=== PATIENT | female | born 2000 | race Caucasian/White ===

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

== ENCOUNTER 2020-03-28 17:50 | Emergency (ER) | payer OTHER ==
[~2020-03-28] VITALS: Ht 154.9 cm; Wt 70.0 kg
[~2020-03-28 17:50] MED LIST changes: +CORTISPORIN OTI10 M2 AS; +SINGULAIR10 MG PO; +VENTOLIN H108 MCG/AC IN; +ZITHROMAX250 MG PO
[2020-03-28 18:22] VITALS: BP 105/62
== END 2020-03-28 18:26 | disposition home or self-care (01) | DRG 605 ==
LOC: ED 17:50
DX: S60.414A Abrasion of right ring finger, initial encounter (principal); W31.89XA Contact with other specified machinery, initial encounter; Y93.89 Activity, other specified; Y92.89 Other specified places as the place of occurrence of the external cause; Y99.0 Civilian activity done for income or pay

== ENCOUNTER 2020-11-25 18:19 | Emergency (ER) | payer OTHER ==
[2020-11-25] MEDS ORDERED: CLARITHROMYCIN500 MG PO (19:47)
[2020-11-25 20:00] VITALS: BP 119/74
== END 2020-11-25 20:00 | disposition home or self-care (01) | DRG 153 ==
LOC: ED 18:19
DX: J03.90 Acute tonsillitis, unspecified (principal); Z20.822 Contact with and (suspected) exposure to COVID-19

== ENCOUNTER 2021-11-02 17:38 | Emergency (ER) | payer OTHER ==
[~2021-11-02] VITALS: Ht 152.4 cm; Wt 70.0 kg
[2021-11-02] VITALS (7 sets, daily range): BP systolic 104–120; BP diastolic 64–78
[~2021-11-02 17:38] MED LIST changes: +CLARITHROMYCIN500 MG PO
[2021-11-02] MEDS ORDERED: LISINOP/HCTZ1 TA1 PO (17:46)
[2021-11-02 18:36] LABS: HEMATOCRIT 40.1 % (37.0-47.0); HEMOGLOBIN 13.2 g/dl (12.0-16.0); IMMATURE GRANULOCYTES 0.2 % (0.0-5.0); MEAN CELL VOLUME 86.1 fL CALC (80.0-100.0); MEAN CORPUSCULAR HGB 28.3 pG CALC (26.0-32.0); MEAN CORPUSCULAR HGB CONC 32.9 g/dL CAL (32.0-36.0); NEUT# 2.72 thou/uL (2.00-7.15); RED BLOOD COUNT 4.66 mill/uL (4.20-5.60); RED CELL DISTRI WIDTH 13.3 % (11.5-15.5)
[2021-11-02 18:55] LABS: ALBUMIN 4.1 g/dL (3.2-5.0); ALKALINE PHOSPHATASE 47 u/l (38-126); AMYLASE 56 u/l (30-110); ANION GAP 14 (6-22 (CALC)); BILIRUBIN, TOTAL 0.6 mg/dL (0.0-1.4); BUN 11 mg/dL (7-17); BUN/CREATININE RATIO 19 (12-20 (CALC)); CARBON DIOXIDE 23 mmol/l (22-30); CHLORIDE 104 mmol/l (95-108); CREATININE 0.6 mg/dL (0.5-1.0); GFR > 60 ML/MIN (>=60 (CALC)); GFR FOR AFR.AMER. > 60 ML/MIN (>=60 (CALC)); LIPASE 47 u/l (23-300); POTASSIUM 3.5 mmol/l (3.5-5.1); SGOT/AST 26 u/l (14-36); SODIUM 138 mmol/l (137-146); TOTAL PROTEIN 7.5 g/dL (6.3-8.2)
[2021-11-02] MEDS ORDERED: ONDANSETRON4 MG PO ×2 (19:31→19:34)
== END 2021-11-02 19:56 | disposition home or self-care (01) | DRG 392 ==
LOC: ED 17:38
PROVIDERS: Emergency Medicine
DX: K52.9 Noninfective gastroenteritis and colitis, unspecified (principal); J45.909 Unspecified asthma, uncomplicated; Z20.822 Contact with and (suspected) exposure to COVID-19

== ENCOUNTER 2022-02-05 17:50 | Emergency (ER) | payer OTHER ==
[~2022-02-05] VITALS: Ht 152.4 cm; Wt 63.5 kg
[~2022-02-05 17:50] MED LIST changes: +LISINOP/HCTZ1 TA1 PO; +ONDANSETRON4 MG PO
[2022-02-05 18:15] VITALS: BP 114/71
[2022-02-05 18:30] VITALS: BP 100/69
[2022-02-05 19:00] VITALS: BP 113/75
[2022-02-05 19:30] VITALS: BP 118/85
[2022-02-05] MEDS ORDERED: TAM75CAP PO (19:56)
[2022-02-05] MEDS ORDERED: OMNICEF300 MG PO (19:56)
[2022-02-05 20:17] VITALS: BP 118/85
== END 2022-02-05 20:25 | disposition home or self-care (01) | DRG 195 ==
LOC: ED 17:50
DX: J10.1 Influenza due to other identified influenza virus with other respiratory manifestations (principal); H65.93 Unspecified nonsuppurative otitis media, bilateral; J45.909 Unspecified asthma, uncomplicated; Z88.0 Allergy status to penicillin; Z20.822 Contact with and (suspected) exposure to COVID-19

== ENCOUNTER 2022-07-15 11:02 | Emergency (ER) | payer OTHER ==
[~2022-07-15] VITALS: Ht 152.4 cm; Wt 70.0 kg
[~2022-07-15 11:02] MED LIST changes: +OMNICEF300 MG PO; +TAM75CAP PO
[2022-07-15] MEDS ORDERED: SINGULAIR10 MG PO (11:26)
[2022-07-15] MEDS ORDERED: ADHD (11:26)
[2022-07-15] MEDS ORDERED: ZPAK PO (12:30)
[2022-07-15 12:36] VITALS: BP 121/76
== END 2022-07-15 12:49 | disposition home or self-care (01) | DRG 153 ==
LOC: ED 11:02
DX: J06.9 Acute upper respiratory infection, unspecified (principal)

== ENCOUNTER 2023-02-06 12:55 | Emergency (ER) | payer OTHER ==
[~2023-02-06] VITALS: Ht 152.4 cm; Wt 75.0 kg
[~2023-02-06 12:55] MED LIST changes: +ADHD; +ZPAK PO
[2023-02-06 13:55] VITALS: BP 118/76
== END 2023-02-06 14:12 | disposition home or self-care (01) | DRG 951 ==
LOC: ED 12:55
DX: Z32.01 Encounter for pregnancy test, result positive (principal)